=== PATIENT | male | born 1985 | race Caucasian/White ===

== ENCOUNTER 2019-08-11 09:37 | Emergency (ER) | payer OTHER ==
[~2019-08-11] VITALS: Ht 177.8 cm; Wt 83.5 kg
[2019-08-11] MEDS ORDERED: ZITHROMAX500 MG PO (14:56)
== END 2019-08-11 15:51 | disposition home or self-care (01) ==
LOC: ER 09:37
DX: B33.8 Other specified viral diseases (principal); B96.0 Mycoplasma pneumoniae [M. pneumoniae] as the cause of diseases classified elsewhere